=== PATIENT | female | born 1945 | race Caucasian/White ===

== ENCOUNTER 2024-12-13 07:15 | Emergency (ER) | payer MEDICARE, BC ==
[~2024-12-13] VITALS: Ht 160 cm; Wt 82.5 kg
[2024-12-13] MEDS: ketorolac trometh 15mg/ml vial 15 MG/ML ML IM ONE (09:38)
[2024-12-13 09:42] VITALS: BP 122/70; PULSE 76; RESP 16; TEMP 98.4; O2SAT 98
== END 2024-12-13 09:46 | disposition home or self-care (01) ==
LOC: ER 07:17
DX: M25.532 Pain in left wrist (principal)
CPT/HCPCS: 29260; 73090; 96372; 99283; J1885; L3908; 29125